=== PATIENT | female | born 1980 | race Caucasian/White ===

== ENCOUNTER 2017-11-22 21:20 | Emergency (ER) | payer MEDICAID ==
[~2017-11-22] VITALS: Ht 170.2 cm; Wt 134.7 kg
[~2017-11-22 21:20] MED LIST: ALBU90OI INH; ALPR.5 PO; AMOX500 PO; ANTIFUNGAL CREA14 GM TOP; ATIVAN; Amoxicillin500 MG PO; BENZ100A PO; CHOL10002 PO; CLIN150 PO; DOXY100 PO; DULO30 PO; ESTR2 PO; FLUC200 PO; FURO20 PO; GUAIFENESIN-CODE5 ML PO; HYDACE5 PO; HYDACE5325 PO; HYDR1TAB94 PO; IBUP800 PO; LEVSOD100 PO; LEVSOD112; LEVSOD125 PO; LEVSOD200 PO; METPRE4DP PO; MUPI2TO TOP; Naprosyn500 MG PO; Norco 5-325 Ta1 EACH PO; ONDA4ODT PO; OXYACE5T PO; OXYC1TAB11 PO; PENVK500 PO; POTCHL10ER PO; PROM25 PO; Percocet 5-3251 EACH PO; RXCLIN PO; Robaxin500 MG PO; SIME80CH PO; TRIA80TC TOP; Ultram50 MG PO; Valium5 MG PO
[2017-11-22 22:43] LABS: Source, Urine Clean Catch
[2017-11-22 22:46] LABS: Blood, Urine 5+ (Neg); Glucose Qualitative, Urine Neg (Neg); Ketones, Urine 4+ (Neg); Protein, Urine 3+ (Neg); Urobilinogen, Urine 3+ (Normal)
[2017-11-22 23:01] LABS: Leukocyte Esterase, Urine 1+ (Neg); Nitrite, Urine Neg (Neg)
[2017-11-22 23:02] LABS: Appearance, Urine Bloody (Clear); Bilirubin, Urine 1+ (Neg); Color, Urine Brown (P-Yellow); Red Blood Cells, Urine TNTC /hpf (0-2)
[2017-11-22 23:03] LABS: Bacteria Mod /hpf; Squamous Epithelial Cells Many /hpf (Few)
[2017-11-22 23:04] LABS: Calcium Oxalate Crystals Mod /hpf
[2017-11-22 23:05] LABS: Renal Epithelial Rare /hpf (0-Rare)
[2017-11-22 23:11] LABS: BASOPHILS ABSOLUTE AUTO 0.05 K/mm3 (0.00-0.23); BASOPHILS PERCENT AUTO 1 % (0-2); EOSINOPHILS ABSOLUTE AUTO 0.12 K/mm3 (0.00-0.68); EOSINOPHILS PERCENT AUTO 2 % (0-6); Hematocrit 41.5 % (33.0-51.0); Hemoglobin 13.9 g/dL (11.5-16.0); IMMATURE GRAN PERCENT AUTO 0 % (0-1); LYMPHOCYTES ABSOLUTE AUTO 2.28 K/mm3 (0.84-5.20); LYMPHOCYTES PERCENT AUTO 33 % (21-46); MONOCYTES ABSOLUTE AUTO 0.67 K/mm3 (0.16-1.47); MONOCYTES PERCENT AUTO 10 % (4-13); Mean Corpuscular HGB 29.1 pg (26.0-34.0); Mean Corpuscular HGB Conc 33.5 g/dL (31.5-36.5); Mean Corpuscular Volume 87 fL (80-100); Mean Platelet Volume 11.9 fL (9.1-12.4); NEUTROPHILS ABSOLUTE AUTO 3.71 K/mm3 (1.96-9.15); NEUTROPHILS PERCENT AUTO 54 % (41-73); Platelet Count 220 K/mm3 (150-400); RDW Coefficient Variation 12.6 % (11.7-14.2); RDW Standard Deviation 39.5 fL (35.1-46.3); Red Blood Cell Count 4.77 M/mm3 (3.80-5.20); White Blood Cell Count 6.83 K/mm3 (4.00-11.30)
[2017-11-22 23:28] LABS: Alanine Aminotransfer (ALT/SGP 56 U/L (12-78); Albumin, Blood 3.9 g/dL (3.4-5.0); Alk Phos 85 U/L (50-136); Anion Gap 12 mmol/L (6-16); Aspartate Aminotrans (AST/SGOT 29 U/L (12-37); Bilirubin, Total 0.5 mg/dL (0.1-1.0); Blood Urea Nitrogen 8 mg/dL (8-24); Bun/Creatinine Ratio 11.9 (12.0-20.0); CO2, Blood 23 mmol/L (21-32); Calcium, Blood 9.1 mg/dL (8.5-10.1); Chloride, Blood 106 mmol/L (98-108); Creatinine, Blood 0.68 mg/dL (0.40-1.00); Globulin, Blood 3.9 g/dL (2.2-4.0); Glomerular Filtration Rate >60 (60-); Glucose, Blood 86 mg/dL (70-99); Potassium, Blood 3.3 mmol/L (3.5-5.5); Sodium, Blood 141 mmol/L (136-145); Total Protein, Blood 7.8 g/dL (6.4-8.2)
[2017-11-23] MEDS ORDERED: CEFP200 PO (00:38)
[2017-11-23] MEDS ORDERED: Flomax0.4 MG PO (00:38)
[2017-11-23] MEDS ORDERED: Norco 5-325 Ta1 EACH PO (00:38)
[2017-11-23] MEDS ORDERED: Zofran Odt4 MG PO (00:57)
== END 2017-11-23 01:25 | disposition home or self-care (01) ==
LOC: ER 21:20
PROVIDERS: Emergency Medicine
DX: N13.2 Hydronephrosis with renal and ureteral calculous obstruction (principal); Z79.899 Other long term (current) drug therapy; E03.9 Hypothyroidism, unspecified; I10 Essential (primary) hypertension
CPT/HCPCS: 36415; 74177; 80053; 81001; 85025; 87086; 96361; 96365; 96375; 99283-25; J0696; J2405; J3010; J7030; Q9967

== ENCOUNTER 2019-10-12 18:18 | Emergency (ER) | payer OTHER ==
[~2019-10-12] VITALS: Ht 170.2 cm; Wt 109.8 kg
[~2019-10-12 18:18] MED LIST changes: +CEFP200 PO; +Cefdinir300 MG PO; +Flomax0.4 MG PO; +Pyridium100 MG PO; +Zofran Odt4 MG PO
[2019-10-12 19:06] LABS: Source, Urine Clean Catch
[2019-10-12 19:11] LABS: Appearance, Urine Clear (Clear); Bilirubin, Urine Neg (Neg); Blood, Urine Neg (Neg); Color, Urine Yellow (P-Yellow); Glucose Qualitative, Urine Neg (Neg); Ketones, Urine Neg (Neg); Leukocyte Esterase, Urine Neg (Neg); Nitrite, Urine Neg (Neg); Protein, Urine Neg (Neg); Urobilinogen, Urine 3+ (Normal)
[2019-10-12] MEDS ORDERED: Phentermine HCl15 MG (19:16)
== END 2019-10-12 19:52 | disposition home or self-care (01) ==
LOC: ER 18:18
PROVIDERS: Physician Assistant
DX: M70.62 Trochanteric bursitis, left hip (principal); I10 Essential (primary) hypertension; Z91.09 Other allergy status, other than to drugs and biological substances; Z88.3 Allergy status to other anti-infective agents; Z79.899 Other long term (current) drug therapy
CPT/HCPCS: 81003; 99283

== ENCOUNTER 2019-10-16 18:57 | Emergency (ER) | payer OTHER ==
[~2019-10-16] VITALS: Ht 345.4 cm; Wt 108.9 kg
[~2019-10-16 18:57] MED LIST changes: +Phentermine HCl15 MG
== END 2019-10-16 20:39 | disposition home or self-care (01) ==
LOC: ER 18:57
DX: S86.912A Strain of unspecified muscle(s) and tendon(s) at lower leg level, left leg, initial encounter (principal); Z88.6 Allergy status to analgesic agent; Z91.048 Other nonmedicinal substance allergy status; E03.9 Hypothyroidism, unspecified; I10 Essential (primary) hypertension; W19.XXXA Unspecified fall, initial encounter
CPT/HCPCS: 73560-LT; 99283-25

== ENCOUNTER 2021-04-11 22:44 | Emergency (ER) | payer OTHER ==
[~2021-04-11] VITALS: Ht 172.7 cm; Wt 124.7 kg
[~2021-04-11 22:44] MED LIST changes: +B-12 COMPL1000 MCG/2 IM; +BENZONATATE100 MG PO; +ONDA4ODT MM; +Ventolin/Prove6.7 GM
== END 2021-04-12 01:04 | disposition home or self-care (01) ==
LOC: ER 22:44
DX: M54.41 Lumbago with sciatica, right side (principal); E03.9 Hypothyroidism, unspecified; I10 Essential (primary) hypertension
CPT/HCPCS: 93971; 99283-25

== ENCOUNTER 2021-04-22 18:28 | Emergency (ER) | payer OTHER ==
[~2021-04-22] VITALS: Ht 170.2 cm; Wt 127.0 kg
== END 2021-04-22 21:25 | disposition home or self-care (01) ==
LOC: ER 18:28
DX: M54.31 Sciatica, right side (principal); E03.9 Hypothyroidism, unspecified; I10 Essential (primary) hypertension; Z88.8 Allergy status to other drugs, medicaments and biological substances
CPT/HCPCS: 73502; 73560-RT; 96372; 99283-25; J1885